=== PATIENT | female | born 1960 | race Two or more races ===

== ENCOUNTER 2022-09-09 14:21 | Emergency (ER) | payer SELFPAY ==
[~2022-09-09] VITALS: Ht 154.9 cm; Wt 73.0 kg
[~2022-09-09 14:21] MED LIST: OMEP20CA14 PO
[2022-09-09 14:40] VITALS: BP 145/77
[2022-09-09] MEDS ORDERED: SODIUM CHLORIDE 0.9% 1,000 ML IV ONE (15:00)
[2022-09-09 15:18] LABS: BASOPHILS % 0.3 % (0.0-2.0); EOSINOPHILS % 0.1 % (0.0-5.0); HEMATOCRIT. 39.8 % (36.0-48.0); HEMOGLOBIN. 13.3 g/dL (12.0-16.0); MEAN CORPUSCULAR HEMOGLOBIN 30.3 pg (28.0-32.0); MEAN CORPUSCULAR VOLUME 90.7 fL (81.0-99.0); MEAN PLATELET VOLUME 7.2 fl (7.4-10.4); MONOCYTES % 8.6 % (2.0-8.0); PLATELET 154 x1000/uL (130-400); RED BLOOD CELL COUNT 4.39 mill/uL (4.2-5.4); RED CELL DISTRIBUTION WIDTH 13.5 % (11.6-14.6)
[2022-09-09 15:24] LABS: CHLORIDE 102 mEq/L (98-107)
== END 2022-09-09 17:07 | disposition left against medical advice (07) ==
LOC: ER 14:21
DX: R53.1 Weakness (principal); R42 Dizziness and giddiness; I10 Essential (primary) hypertension; Z88.0 Allergy status to penicillin
CPT/HCPCS: 36415; 80053; 83735; 83880; 84484; 85025; 93005; 99284

== ENCOUNTER 2022-09-09 23:28 | Emergency (ER) | payer SELFPAY ==
[~2022-09-09] VITALS: Ht 157.5 cm; Wt 87.0 kg
[2022-09-09 23:33] VITALS: BP 138/95
== END 2022-09-09 23:50 | disposition left against medical advice (07) ==
LOC: ER 23:28
DX: R07.89 Other chest pain (principal); M79.602 Pain in left arm; R42 Dizziness and giddiness; I10 Essential (primary) hypertension; Z88.0 Allergy status to penicillin
CPT/HCPCS: 84484; 93005; 99283